=== PATIENT | female | born 1950 | race Caucasian/White ===

== ENCOUNTER 2018-05-28 14:34 | Outpatient (CLI) | payer MEDICARE, OTHER ==
--- NOTE | 2018-05-29 11:36 | Mammography Report ---
Procedure Date: 05/28/2018 Accession Number: [id number] / [id number] Procedure: CHARLES - Screening Mammo Dig Bilat CPT Code: FULL RESULT: EXAM: Screening Mammo Dig Bilat DATE: 05/28/2018 3:06 PM CLINICAL HISTORY: 70-year-old with history of benign left breast biopsy for screening TECHNIQUE: Bilateral CC and MLO views were obtained. COMPARISON: 12/14/2015, 09/20/2008, 11/17/2005 FINDINGS: The breasts demonstrate scattered fibroglandular densities bilaterally. Postbiopsy changes in the left breast are stable. No suspicious masses, clustered microcalcifications, or regions of architectural distortion are identified. IMPRESSION: Benign findings RECOMMENDATION: Routine annual screening unless otherwise clinically indicated. BIRADS CATEGORY 2: Benign findings STANDARD QUALIFYING STATEMENTS: 1. This examination was reviewed with the aid of Computer-Aided Detection (CAD). 2. A negative or benign imaging report should not delay biopsy if clinically suspicious findings are present. Consider surgical consultation if warrented. More than 5% of cancers are not identified by imaging. 3. Dense breasts may obscure an underlying neoplasm.
== END 2018-05-28 14:35 | disposition home or self-care (01) ==
LOC: DI 14:34
PROVIDERS: ATTEND Internal Medicine
DX: Z12.31 Encounter for screening mammogram for malignant neoplasm of breast (principal)
CPT/HCPCS: 77067

== ENCOUNTER 2021-10-21 12:57 | Outpatient (CLI) | payer MEDICARE, OTHER ==
--- NOTE | 2021-10-24 13:59 | Mammography Report ---
BILATERAL DIGITAL SCREENING MAMMOGRAM 3D/2D: 10/21/2021 CLINICAL: Routine screening. Comparison is made to exams dated: 05/28/2018 mammogram and 12/14/2015 mammogram - [facility]. There are scattered fibroglandular elements in both breasts. No significant masses, calcifications, or other findings are seen in either breast. There has been no significant interval change. IMPRESSION: NEGATIVE There is no mammographic evidence of malignancy. A 1 year screening mammogram is recommended. This exam was interpreted at Station ID: [id number]. NOTE: For mammograms, a report in lay terms will be sent to the patient. Approximately 15% of breast malignancies will not be visualized mammographically. In the management of a palpable breast mass, a negative mammogram must not discourage biopsy of a clinically suspicious lesion. Electronically Signed By: Ivania henry/penrad:10/21/2021 18:05:43 ACR BI-RADS Category 1: Negative 3341F PARENCHYMAL PATTERN: (A) - The breast(s) demonstrate(s) scattered fibroglandular densities. BI-RADS CATEGORY: (1) - 1 RECOMMENDATION: (ANNUAL) - Recommend routine annual screening mammography. 20221022 1 year screening LATERALITY: (B)
== END 2021-10-21 12:58 | disposition home or self-care (01) ==
LOC: DI 12:57
PROVIDERS: ATTEND Physician Assistant Medical
DX: Z12.31 Encounter for screening mammogram for malignant neoplasm of breast (principal)

== ENCOUNTER 2021-10-21 13:00 | Outpatient (CLI) | payer MEDICARE, OTHER ==
--- NOTE | 2021-10-21 16:16 | DEXA Report ---
PROCEDURE: Dexa Spine and/or Hip INDICATIONS: OSTEOPENIA TECHNIQUE: Dual energy x-ray absorptiometry (DXA) was performed on a [employer] medic System. Regions measur ed are the AP Spine, femoral neck, and if needed forearm. COMPARISON: None. FINDINGS: Lumbar Spine: Bone Mineral Density 0.945 g/cm/cm,T score -1.9, osteopenia Left Hip: Bone Mineral Density 0.850 g/cm/cm,T score -1.2, osteopenia Left Femoral Neck: Bone Mineral Density 0.715 g/cm/cm, T score -2.3, osteopenia (T score greater or equal to -1.0: NORMAL) (T score from -1.1 to -2.4: OSTEOPENIA) (T score less than or equal to -2.5 to: OSTEOPOROSIS) Impression: Osteopenia. Patients with diagnosis of osteoporosis or osteopenia should have regular bone mineral density assess ment. For those eligible for Medicare, routine testing is allowed once every 2 years. Testing frequ ency can be increased for patients who have rapidly progressing disease or for those who are receivin g medical therapy to restore bone mass. Reviewed by: Serina Martines MD, PhD on 10/21/2021 4:15 PM PST Approved by: Serina Martines MD, PhD on 10/21/2021 4:15 PM PST Station ID: [id number]
== END 2021-10-21 23:59 | disposition home or self-care (01) ==
LOC: DI 13:00
PROVIDERS: ATTEND Physician Assistant Medical
DX: M85.89 Other specified disorders of bone density and structure, multiple sites (principal)

== ENCOUNTER 2021-12-13 10:59 | Outpatient (CLI) | payer MEDICARE, OTHER ==
--- NOTE | 2021-12-13 11:48 | XRAY Report ---
PROCEDURE: Knee 3 View LT INDICATIONS: PAIN IN LEFT KNEE TECHNIQUE: 3 views of the left knee(s) were acquired. COMPARISON: None. FINDINGS: Bones: No fractures or dislocations. No suspicious bony lesions. Mild tricompartmental osteoarthrit is is seen more prominent in medial femoral tibial compartment. Soft tissues: No joint effusion. No suspicious soft tissue calcifications. IMPRESSION: No acute left knee fracture or dislocation. Mild tricompartmental osteoarthritis. No sig nificant joint effusion. Reviewed by: Jake Hurtado MD on 12/13/2021 11:47 AM PST Approved by: Jake Hurtado MD on 12/13/2021 11:47 AM PST Station ID: [id number]
== END 2021-12-13 11:00 | disposition home or self-care (01) ==
LOC: DI 10:59
PROVIDERS: ATTEND Physician Assistant
DX: M17.12 Unilateral primary osteoarthritis, left knee (principal)

== ENCOUNTER 2023-01-13 20:20 | Emergency (ER) | payer MEDICARE, OTHER ==
[2023-01-13] MEDS ORDERED: ONDANSETRON 4 MG/2 ML VIAL IVP STA (21:02)
[2023-01-13] MEDS ORDERED: HYDROmorphone 1 MG/ML CARPUJECT IVP STA (21:02)
[2023-01-13 21:19] LABS: BASOPHILS # (AUTO) 0.1 10^3/uL (0.0-0.1); BASOPHILS % (AUTO) 0.6 %; EOSINOPHILS # (AUTO) 0.2 10^3/uL (0.0-0.7); EOSINOPHILS % (AUTO) 2.3 %; HCT - HEMATOCRIT 42.6 % (37.0-47.0); HGB - HEMOGLOBIN 14.2 g/dL (12.0-16.0); LYMPHOCYTES # (AUTO) 2.4 10^3/uL (1.5-3.5); LYMPHOCYTES % (AUTO) 31.1 %; MEAN CORPUSCULAR HGB CONC 33.3 g/dL (32.0-36.0); MEAN PLATELET VOLUME 9.2 fL (7.9-10.8); MONOCYTES # (AUTO) 0.4 10^3/uL (0.0-1.0); MONOCYTES % (AUTO) 4.9 %; NEUTROPHILS # (AUTO) 4.8 10^3/uL (1.5-6.6); NEUTROPHILS % (AUTO) 60.8 %; PLT - PLATELET COUNT 275 10^3/uL (130-450); RED BLOOD COUNT 5.07 10^6/uL (4.20-5.40); RED CELL DISTRIBUTION WIDTH 12.7 % (12.0-15.0); WHITE BLOOD COUNT 7.8 x10^3/uL (4.8-10.8)
[2023-01-13 21:33] LABS: ALBUMIN 4.4 g/dL (3.2-5.5); ALBUMIN/GLOBULIN RATIO 1.6 (1.0-2.2); CALCIUM 10.1 mg/dL (8.5-10.3); CREATININE 0.7 mg/dL (0.4-1.0); POTASSIUM 3.4 mmol/L (3.5-5.0); TOTAL PROTEIN 7.1 g/dL (6.7-8.2)
[2023-01-13] MEDS ORDERED: FAMOTIDINE 20 MG TABLET PO STA (21:33)
--- NOTE | 2023-01-13 21:38 | ED Physician Documentation ---
History of Present Illness - Stated complaint Stated Complaint: PX ALL AROUND MID SECTION - Chief complaint Chief Complaint: Abd Pain - History obtained from History obtained from: Patient, Family (spouse) - Additonal information Additional information: 72-year-old woman with past medical history of high blood pressure presented with abdominal pain radiating to the back. Does have a history of gallstones but has not had cholecystectomy. States she ate dinner around 6pm then had sudden onset pain around 8pm that was band-like, radiating around to the back, initially 8/10, now 6/10. constant. denies fever, urinary sx. does have chronic diarrhea that is nonworsening. Review of Systems Constitutional: denies: Fever Cardiac: denies: Chest pain / pressure Respiratory: denies: Dyspnea GI: reports: Abdominal Pain, Nausea, Vomiting, Diarrhea (chronic) : denies: Dysuria PD PAST MEDICAL HISTORY - Past Medical History Cardiovascular: Hypertension Respiratory: None Endocrine/Autoimmune: Type 2 diabetes GI: GERD, Hiatal hernia, Ulcerative colitis : None HEENT: None Psych: None Musculoskeletal: None Derm: None - Past Surgical History General: Colonoscopy, EGD Ortho: Other /[employer]: Hysterectomy, Oophrectomy HEENT: Tonsil/Adenoidectomy - Present Medications Home Medications: Ambulatory Orders Medication Instructions Recorded Confirmed Losartan [Cozaar] 100 mg PO DAILY 03/02/16 03/03/16 hydroCHLOROthiazide 25 mg PO DAILY 03/02/16 03/03/16 [Hydrochlorothiazide] metFORMIN [Glucophage] 1,000 mg PO BIDWM 03/02/16 03/03/16 - Allergies Allergies/Adverse Reactions: Allergies Allergy/AdvReac Type Severity Reaction Status Date / Time shellfish derived Allergy Hives Verified 01/13/23 20:36 Tetracyclines AdvReac Nausea Verified 01/13/23 20:36 PD ED PE NORMAL - Vitals Vital signs reviewed: Yes - General General: Alert and oriented X 3, No acute distress, Well developed/nourished - HEENT HEENT: Atraumatic, PERRL, EOMI - Neck Neck: Supple, no meningeal sign - Derm Derm: Normal color, Warm and dry - Extremities Extremities: No deformity - Neuro Neuro: No motor deficit, No sensory deficit - Psych Psych: Normal mood, Normal affect Results - Vitals Vitals: Vital Signs - 24 hr 01/13/23 20:36 Temperature 36.5 C Heart Rate 84 Respiratory 16 Rate Blood Pressure 145/89 H O2 Saturation 97 Oxygen O2 Source Room air - EKG (time done) 2054 Rate: Rate (enter#) (95) Rhythm: NSR Intervals: RBBB QRS: LVH Ischemia: Normal ST segments - Labs Labs: Laboratory Tests 01/13/23 01/13/23 21:15 21:15 WBC 7.8 RBC 5.07 Hgb 14.2 Hct 42.6 MCV 84.0 MCH 28.0 MCHC 33.3 RDW 12.7 Plt Count 275 MPV 9.2 Neut # (Auto) 4.8 Lymph # (Auto) 2.4 [place] # (Auto) 0.4 Eos # (Auto) 0.2 Baso # (Auto) 0.1 Absolute Nucleated RBC 0.00 Nucleated RBC % 0.0 Sodium 137 Potassium 3.4 L Chloride 101 Carbon Dioxide 22 Anion Gap 14.0 H BUN 14 Creatinine 0.7 Estimated GFR (MDRD) 82 L Glucose 141 H Calcium 10.1 Total Bilirubin 1.0 AST 25 ALT 12 Alkaline Phosphatase 66 Total Protein 7.1 Albumin 4.4 Globulin 2.7 Albumin/Globulin Ratio 1.6 Lipase 33 PD Medical Decision Making - ED course Social Determinants of Health: Son in law just hospitalized with serious illness recently. ED course: 72-year-old woman with hx gallstones p/w upper abd pain radiating to back, now improved in the ED s/p pepcid. no ultrasound available to test for gallstone pathology but since she is now asymptomatic we can hold off. EKG was nsr at 95 with RBBB and LAFB , some signs of LVH. no prior ekg available. patient well appearing so doubt cardiac event. Labwork including cbc, abdominal panel ordered - noncontributory. discussed return precautions and plan is to f/u with PCP Dr. London next week. Departure - Departure Disposition: 01 Home, Self Care Clinical Impression: Abdominal pain Condition: Good Instructions: Abdominal Pain Follow-Up: Trace London MD [Primary Care Provider] - Comments: You are seen in the emergency department for abdominal pain. Your vital signs were overall normal except for blood pressure 145/89, which is slightly high. Your lab work showed no organ dysfunction. An EKG was performed which did not show heart attack, but did show some changes that may be related to high blood pressure. You should have your EKG repeated at your follow-up appointment with Dr. London. Please return to the emergency department for new or worsening symptoms or other concerns.
--- OUTSIDE RECORDS SUMMARY | 2023-01-13 21:39 | EXTERNAL MEDICAL SUMMARY RPT | Continuity of Care Document ---
:1950 Author Organization [facility] Address [address] [place] [address] Phone Care Team Providers Name Role Phone Unavailable Unavailable Unavailable Reuben Em Unavailable Unavailable Allergies and Intolerances date description facility type (no date) Mild [facility] (unknown) (no date) Sulfa (Sulfonamide Antibiotics) [facility] (unknown) Encounters No information. Functional Status No information. Immunizations No information. Medications date description facility 2022-10-23 00:00 Amlodipine [facility] 2022-10-23 00:00 Ibuprofen [facility] 2022-10-23 00:00 Losartan [facility] Problems date description facility 2022-10-23 07:53 Diarrhea, unspecified [facility] 2022-10-23 08:19 Diarrhea, unspecified [facility] 2022-10-23 08:39 Diarrhea, unspecified [facility] 2022-10-23 09:59 Diarrhea, unspecified [facility] 2022-10-23 10:08 Diarrhea, unspecified [facility] 2022-10-23 10:28 Diarrhea, unspecified [facility] Procedures date description facility 2022-10-23 00:00 Colonoscopy [facility] Results/Labs test date author facility value unit interpret ation Result panel 1 (unknown) (no date) (unknown) [place] (no value) (units (k now) [facility] unknown) Result panel 2 (unknown) (no date) (unknown) [place] (no value) (units ([facility]own[facility] unknown) Result panel 3 (unknown) (no date) (unknown) (unknown) (no value) (units 191 39-5 unknown) (unknown) (no date) (unknown) (unknown) (no value) (units 226 33-2 unknown) (unknown) (no date) (unknown) (unknown) (no value) (units 226 34-0 unknown) (unknown) (no date) (unknown) (unknown) (no value) (units 226 37-3 unknown) (unknown) (no date) (unknown) (unknown) (no value) (units 495 60-6 unknown) (unknown) (no date) (unknown) (unknown) (no value) (units 527 97-8 unknown) (unknown) (no date) (unknown) (unknown) (no value) (units (un known) unknown) (unknown) (no date) (unknown) (unknown) (no value) (units (un known) unknown) (unknown) (no date) (unknown) (unknown) (no value) (units (un known) unknown) (unknown) (no date) (unknown) (unknown) (no value) (units (un known) unknown) (unknown) (no date) (unknown) (unknown) (no value) (units (un known) unknown) (unknown) (no date) (unknown) (unknown) (no value) (units (un known) unknown) Result panel 4 (unknown) (no date) (unknown) (unknown) Negative (units (unkn own) unknown) (unknown) (no date) (unknown) (unknown) Negative (units (unkn own) unknown) Result panel 5 (unknown) (no (unknown) (unknown) (no value) (units (unk nown) date) unknown) (unknown) (no (unknown) (unknown) (past 8 hours): (units (unknown) date) unknown) (unknown) (no (unknown) (unknown) 08:01 (units (unkno wn) date) unknown) (unknown) (no (unknown) (unknown) 08:21 (units (unkno wn) date) unknown) (unknown) (no (unknown) (unknown) 10/23/22 0902 (units ( unknown) date) unknown) (unknown) (no (unknown) (unknown) 10/23/22 0903 (units ( unknown) date) unknown) (unknown) (no (unknown) (unknown) 10/23/22 (units (unkno wn) date) unknown) (unknown) (no (unknown) (unknown) 72-year-old (units (un known) date) female with unknown) chronic diarrhea. She has a remote history of some form (unknown) (no (unknown) (unknown) ASA Class (for (units (unknown) date) procedural unknown) sedation): II (unknown) (no (unknown) (unknown) Age/Sex: 72 / F (units (unknown) date) unknown) (unknown) (no (unknown) (unknown) Allergies (units (unkn own) date) unknown) (unknown) (no (unknown) (unknown) Allergy/AdvReac (units (unknown) date) Type Severity unknown) Reaction Status Date / Time (unknown) (no (unknown) (unknown) Antibiotics) (units (u nknown) date) unknown) (unknown) (no (unknown) (unknown) Appearance: (units (un known) date) grossly normal unknown) (unknown) (no (unknown) (unknown) Assessment + (units (u nknown) date) Plan narrative: unknown) (unknown) (no (unknown) (unknown) Assessment + (units (u nknown) date) Plan unknown) (unknown) (no (unknown) (unknown) Blood Pressure (units (unknown) date) 133/86 unknown) (unknown) (no (unknown) (unknown) COVID-19 (units (unkno wn) date) status: Negative unknown) (unknown) (no (unknown) (unknown) COVID-19 (units (unkno wn) date) unknown) (unknown) (no (unknown) (unknown) Cardio (units (unkno wn) date) unknown) (unknown) (no (unknown) (unknown) Changes to H+P: (units (unknown) date) No unknown) (unknown) (no (unknown) (unknown) Chest (units (unkno wn) date) unknown) (unknown) (no (unknown) (unknown) Chest: normal (units ( unknown) date) inspection of unknown) the chest (unknown) (no (unknown) (unknown) Chief (units (unkno wn) date) complaint: unknown) Colonoscopy (unknown) (no (unknown) (unknown) Const (units (unkno wn) date) unknown) (unknown) (no (unknown) (unknown) Criteria for (units (u nknown) date) continued unknown) procedure: Possibility delay results in more complex (unknown) (no (unknown) (unknown) Critical Care (units ( unknown) date) time: unknown) (unknown) (no (unknown) (unknown) : 1950 (units (unknown) date) Acct:[id number] unknown) (unknown) (no (unknown) (unknown) Date Patient (units (u nknown) date) Seen: 10/23/22 unknown) (unknown) (no (unknown) (unknown) Date of (units (unkno wn) date) Service: unknown) 10/23/22 (unknown) (no (unknown) (unknown) Effort + (units (unkno wn) date) Inspection: unknown) normal respiratory effort (unknown) (no (unknown) (unknown) Exam (units (unkno wn) date) unknown) (unknown) (no (unknown) (unknown) Extrem (units (unkno wn) date) unknown) (unknown) (no (unknown) (unknown) Eyes (units (unkno wn) date) unknown) (unknown) (no (unknown) (unknown) Family + Social (units (unknown) date) History unknown) (unknown) (no (unknown) (unknown) GI (units (unkno wn) date) unknown) (unknown) (no (unknown) (unknown) General: (units (unkno wn) date) appearance unknown) normal, both eyes and all related structures (unknown) (no (unknown) (unknown) General: (units (unkno wn) date) cooperative unknown) (unknown) (no (unknown) (unknown) General: no (units (un known) date) rashes or unknown) lesions noted (unknown) (no (unknown) (unknown) General: normal (units (unknown) date) to inspection unknown) and no pedal edema (unknown) (no (unknown) (unknown) General: (units (unkno wn) date) patient alert unknown) and patient awake (unknown) (no (unknown) (unknown) HENMT (units (unkno wn) date) unknown) (unknown) (no (unknown) (unknown) Head: normal to (units (unknown) date) inspection unknown) (unknown) (no (unknown) (unknown) History + (units (unkn own) date) Physical Report unknown) (unknown) (no (unknown) (unknown) History + (units (unkn own) date) Physical unknown) reviewed/Exam performed by Physician: Yes (unknown) (no (unknown) (unknown) History of (units (unk nown) date) Present Illness unknown) (unknown) (no (unknown) (unknown) Home (units (unkno wn) date) Medications and unknown) Allergies (unknown) (no (unknown) (unknown) Home (units (unkno wn) date) Medications unknown) (unknown) (no (unknown) (unknown) I reviewed the (units (unknown) date) recent office unknown) note by Dr. Jones. No changes. (unknown) (no (unknown) (unknown) I spent a total (units (unknown) date) of [] minutes of unknown) critical care time on this patient's care (unknown) (no (unknown) (unknown) Inspection: (units (un known) date) normal to unknown) inspection (unknown) (no (unknown) (unknown) Interval Note (units ( unknown) date) unknown) (unknown) (no (unknown) (unknown) [facility] (units (unknown) date) [address] [place] [address] unknown) [place] [address] (unknown) (no (unknown) (unknown) Laboratory (units (unk nown) date) Results - last unknown) 24 hr (unknown) (no (unknown) (unknown) Labs (units (unkno wn) date) unknown) (unknown) (no (unknown) (unknown) Labs: (units (unkno wn) date) unknown) (unknown) (no (unknown) (unknown) MR#: [id number] (units (unknown) date) unknown) (unknown) (no (unknown) (unknown) Medication (units (unk nown) date) Instructions unknown) Recorded Confirmed Type (unknown) (no (unknown) (unknown) Meds (units (unkno wn) date) unknown) (unknown) (no (unknown) (unknown) Narrative: (units (unk nown) date) unknown) (unknown) (no (unknown) (unknown) Neck (units (unkno wn) date) unknown) (unknown) (no (unknown) (unknown) Neck: normal (units (u nknown) date) visual unknown) inspection (unknown) (no (unknown) (unknown) Neuro (units (unkno wn) date) unknown) (unknown) (no (unknown) (unknown) Objective (units (unkn own) date) unknown) (unknown) (no (unknown) (unknown) Oxygen Delivery (units (unknown) date) Method Room Air unknown) (unknown) (no (unknown) (unknown) Patient History (units (unknown) date) unknown) (unknown) (no (unknown) (unknown) Patient: (units (unkno wn) date) Holderman unknown) Loni Guzman (unknown) (no (unknown) (unknown) Pre-operative (units ( unknown) date) Note unknown) (unknown) (no (unknown) (unknown) Provider: (units (unkn own) date) Reuben Em unknown) (unknown) (no (unknown) (unknown) Psych (units (unkno wn) date) unknown) (unknown) (no (unknown) (unknown) Pulse Oximetry (units (unknown) date) 98 unknown) (unknown) (no (unknown) (unknown) Pulse Rate 67 (units ( unknown) date) unknown) (unknown) (no (unknown) (unknown) ROS: Yes All (units (u nknown) date) systems reviewed unknown) with the patient and are negative except as (unknown) (no (unknown) (unknown) Rate: regular (units ( unknown) date) rate unknown) (unknown) (no (unknown) (unknown) Resp (units (unkno wn) date) unknown) (unknown) (no (unknown) (unknown) Respiratory (units (un known) date) Rate 16 unknown) (unknown) (no (unknown) (unknown) Result (units (unkno wn) date) date/Date tested unknown) (Pos, Neg/Pending): 10/23/22 (unknown) (no (unknown) (unknown) Review of (units (unkn own) date) Systems unknown) (unknown) (no (unknown) (unknown) SARS-CoV-2 (units (unk nown) date) (PCR) Negative unknown) (unknown) (no (unknown) (unknown) Signed (units (unkno wn) date) By:<Electronical unknown) ly signed by Reuben Em MD> (unknown) (no (unknown) (unknown) Skin (units (unkno wn) date) unknown) (unknown) (no (unknown) (unknown) Smoking Status (units (unknown) date) Former smoker unknown) (unknown) (no (unknown) (unknown) Social History: (units (unknown) date) unknown) (unknown) (no (unknown) (unknown) Substance Use (units ( unknown) date) Type marijuana unknown) (unknown) (no (unknown) (unknown) Sulfa (units (unkno wn) date) (Sulfonamide unknown) AdvReac Mild Vomiting Verified 10/23/22 08:14 (unknown) (no (unknown) (unknown) Temperature (units (un known) date) 97.3 F L unknown) (unknown) (no (unknown) (unknown) Time Patient (units (u nknown) date) Seen: 09:01 unknown) (unknown) (no (unknown) (unknown) Time Spent With (units (unknown) date) Patient unknown) (unknown) (no (unknown) (unknown) Tobacco + (units (unkn own) date) Substance use: unknown) (unknown) (no (unknown) (unknown) Vital Signs (units (un known) date) unknown) (unknown) (no (unknown) (unknown) alcohol intake (units (unknown) date) current unknown) (unknown) (no (unknown) (unknown) alcohol intake (units (unknown) date) frequency unknown) holiday/special occasion (unknown) (no (unknown) (unknown) amlodipine 2.5 (units (unknown) date) mg tablet 2.5 mg unknown) PO DAILY 10/23/22 10/23/22 History (unknown) (no (unknown) (unknown) colonoscopy is (units (unknown) date) pursued today. unknown) (unknown) (no (unknown) (unknown) future surgery (units (unknown) date) or treatment unknown) (unknown) (no (unknown) (unknown) household (units (unkn own) date) members unknown) significant other (unknown) (no (unknown) (unknown) ibuprofen 200 (units ( unknown) date) mg tablet 200 mg unknown) PO DAILY 10/23/22 10/23/22 History (unknown) (no (unknown) (unknown) losartan 25 mg (units (unknown) date) tablet 25 mg PO unknown) DAILY 10/23/22 10/23/22 History (unknown) (no (unknown) (unknown) of colitis many (units (unknown) date) years ago. unknown) Sounds like it may have been ischemic. Updated (unknown) (no (unknown) (unknown) otherwise (units (unkn own) date) documented unknown) (unknown) (no (unknown) (unknown) today; this (units (un known) date) time is unknown) exclusive of procedural time. Result panel 6 (unknown) (no (unknown) (unknown) (no value) (units (unk nown) date) unknown) (unknown) (no (unknown) (unknown) (units (unknown) date) unknown) (unknown) (no (unknown) (unknown) Performed at: (units (unknown) date) 01 unknown) (unknown) (no (unknown) (unknown) . 01 (units (unkno wn) date) unknown) (unknown) (no (unknown) (unknown) . (units (unkno wn) date) unknown) (unknown) (no (unknown) (unknown) /JANET 10/24/2022 (units (unknown) date) 0101 Local unknown) (unknown) (no (unknown) (unknown) 0.1 x 0.1 x 0.1 (units (unknown) date) cm to 0.2 x 0.2 x unknown) 0.2 cm submitted entirely in 1 (unknown) (no (unknown) (unknown) 0.3 x 0.2 x 0.2 (units (unknown) date) cm submitted unknown) entirely in 1 cassette(s) (unknown) (no (unknown) (unknown) [address] [facility] (units (unknown) date) unknown) (unknown) (no (unknown) (unknown) [address] [place] [address] (units (unknown) date) [address], unknown) [place], [place] [id number] (unknown) (no (unknown) (unknown) [id number] (units (unknown) date) unknown) (unknown) (no (unknown) (unknown) A. Random Colon, (units (unknown) date) Biopsies: unknown) (unknown) (no (unknown) (unknown) [place], [place] (units ( unknown) date) [id number] unknown) (unknown) (no (unknown) (unknown) B. Transverse (units ( unknown) date) Colon Polyp, unknown) Biopsy: (unknown) (no (unknown) (unknown) CPT . (units (unkno wn) date) unknown) (unknown) (no (unknown) (unknown) Collection Date: (units (unknown) date) 10/23/22 unknown) (unknown) (no (unknown) (unknown) Colonic mucosa (units (unknown) date) with focal unknown) mucosal hyperplasia. (unknown) (no (unknown) (unknown) Colonic mucosa (units (unknown) date) with no unknown) diagnostic abnormality. (unknown) (no (unknown) (unknown) DD/ (units (unknown) date) 0000 unknown) (unknown) (no (unknown) (unknown) Date of : (units (unknown) date) 1950 Admit unknown) Date: 10/23/22 (unknown) (no (unknown) (unknown) Diagnosis: (units (unk nown) date) unknown) (unknown) (no (unknown) (unknown) Dictated By: (units (u nknown) date) Karlos Rowell unknown) (unknown) (no (unknown) (unknown) Electronically (units (unknown) date) signed: . unknown) (unknown) (no (unknown) (unknown) Gross (units (unkno wn) date) description: . unknown) (unknown) (no (unknown) (unknown) [facility] (units (unknown) date) unknown) (unknown) (no (unknown) (unknown) [facility] Accession (units ( unknown) date) Number: unknown) [id number] (unknown) (no (unknown) (unknown) [facility] (units (unknown) date) [place] [facility] unknown) (unknown) (no (unknown) (unknown) MD Liu (units (unkn own) date) Yg WORK[facility] Phone: unknown) [phone] (unknown) (no (unknown) (unknown) (units (unknown) date) Dictating Dr: unknown) Karlso Rowell MD (unknown) (no (unknown) (unknown) MRV 10/25/2022 (units (unknown) date) 1538 Local unknown) (unknown) (no (unknown) (unknown) Material (units (unkno wn) date) submitted: . unknown) (unknown) (no (unknown) (unknown) Karlos Ericka (units (unkn own) date) MD Lelia, PhD, unknown) Pathologist (unknown) (no (unknown) (unknown) NPI- [id number] (units (unknown) date) unknown) (unknown) (no (unknown) (unknown) Negative for (units (u nknown) date) active, chronic, unknown) and microscopic colitis. (unknown) (no (unknown) (unknown) Negative for (units (u nknown) date) dysplasia and unknown) malignancy. (unknown) (no (unknown) (unknown) Negative for (units (u nknown) date) dysplasia or unknown) malignancy. (unknown) (no (unknown) (unknown) Ordering (units (unkno wn) date) Physician: unknown) Reuben Em MD (unknown) (no (unknown) (unknown) PART A: colon - (units (unknown) date) RANDOM COLON unknown) BIOPSIES (unknown) (no (unknown) (unknown) PART B: colon - (units (unknown) date) TRANSVERSE COLON unknown) POLYP (unknown) (no (unknown) (unknown) Part A: RANDOM (units (unknown) date) COLON BIOPSIES: unknown) (unknown) (no (unknown) (unknown) Part B: (units (unkno wn) date) TRANSVERSE COLON unknown) POLYP: (unknown) (no (unknown) (unknown) Pathologist (units (un known) date) provided ICD-10: unknown) (unknown) (no (unknown) (unknown) Pathology (units (unkn own) date) Diagnostic Report unknown) (unknown) (no (unknown) (unknown) Patient name: (units ( unknown) date) Holderman unknown) Loni Guzman (unknown) (no (unknown) (unknown) R19.7, K63.5 (units (u nknown) date) unknown) (unknown) (no (unknown) (unknown) Received in (units (un known) date) formalin are 3 unknown) fragment(s) of taylor, soft tissue measuring (unknown) (no (unknown) (unknown) Received in (units (un known) date) formalin is 1 unknown) fragment(s) of taylor, soft tissue measuring (unknown) (no (unknown) (unknown) Signed By: (units (unk nown) date) 10/25/221906 unknown) (unknown) (no (unknown) (unknown) Signed (units (unkno wn) date) unknown) (unknown) (no (unknown) (unknown) Specimen (units (o wn) date) Comment: A unknown) courtesy copy of this report has been sent to [phone] (unknown) (no (unknown) (unknown) TD/TT: 10/25/22 (units (unknown) date) 1906 unknown) (unknown) (no (unknown) (unknown) cassette(s) (units (un known) date) unknown) Result panel 7 (unknown) (no (unknown) (unknown) (no value) (units (unk n) date) unknown) (unknown) (no (unknown) (unknown) 1. Await (units (o wn) date) histopathology 2. unknown) Fiber based bowel regimen is recommended for now. (unknown) (no (unknown) (unknown) 1. Grade 3 (units (k n) date) internal unknown) hemorrhoids (unknown) (no (unknown) (unknown) 10/23/22 0941 (units ( unknown) date) unknown) (unknown) (no (unknown) (unknown) 2. (units (o wn) date) Diverticulosis unknown) (unknown) (no (unknown) (unknown) 3. Twisty colon (units (unknown) date) unknown) (unknown) (no (unknown) (unknown) 4. Transverse (units ( unknown) date) colon polyp unknown) (unknown) (no (unknown) (unknown) 5 mm polyp in (units ( unknown) date) the transverse unknown) removed with cold forceps. The ileocecal valve (unknown) (no (unknown) (unknown) After the risks (units (unknown) date) and benefits were unknown) explained, written and verbal informed consent (unknown) (no (unknown) (unknown) Age/Sex: 72 / F (units (unknown) date) unknown) (unknown) (no (unknown) (unknown) Bowel prep (units (unk nown) date) adequate unknown) (unknown) (no (unknown) (unknown) Colonoscopy Note (units (unknown) date) unknown) (unknown) (no (unknown) (unknown) Colonoscopy with (units (unknown) date) cold forceps unknown) polypectomy and biopsies (unknown) (no (unknown) (unknown) Complications: (units (unknown) date) none unknown) (unknown) (no (unknown) (unknown) Comprehensive (units ( unknown) date) imaging was unknown) accomplished throughout the rectum including the (unknown) (no (unknown) (unknown) : 1950 (units (unknown) date) Acct:[id number] unknown) (unknown) (no (unknown) (unknown) Date of Service: (units (unknown) date) 10/23/22 unknown) (unknown) (no (unknown) (unknown) Date of (units (unkno wn) date) procedure: unknown) 10/23/22 (unknown) (no (unknown) (unknown) Diarrhea (units (unkno wn) date) unknown) (unknown) (no (unknown) (unknown) Disposition: (units (u nknown) date) PACU unknown) (unknown) (no (unknown) (unknown) Diverticulosis (units (unknown) date) was encountered unknown) in the sigmoid region. There was a diminutive 4 (unknown) (no (unknown) (unknown) Endoscopic (units (unk nown) date) diagnosis unknown) (unknown) (no (unknown) (unknown) Impression: (units (un known) date) unknown) (unknown) (no (unknown) (unknown) Indications: (units (u nknown) date) unknown) (unknown) (no (unknown) (unknown) [facility] (units (unknown) date) [address] unknown) [place] [address] (unknown) (no (unknown) (unknown) MR#: [id number] (units (unknown) date) unknown) (unknown) (no (unknown) (unknown) Operative (units (unkn own) date) Date/Time/Diagnos unknown) es (unknown) (no (unknown) (unknown) Patient: (units (unkno wn) date) Holderman unknown) Loni Guzman (unknown) (no (unknown) (unknown) Pediatric (units (unkn own) date) colonoscope unknown) (unknown) (no (unknown) (unknown) Plan for (units (unkno wn) date) aftercare: unknown) (unknown) (no (unknown) (unknown) Post-op (units (unkno wn) date) diagnosis: same unknown) (unknown) (no (unknown) (unknown) Post-procedure (units (unknown) date) unknown) (unknown) (no (unknown) (unknown) Pre-op (units (unkno wn) date) diagnosis: unknown) Chronic diarrhea (unknown) (no (unknown) (unknown) Procedure + (units (un known) date) Clinicians unknown) (unknown) (no (unknown) (unknown) Procedure Notes (units (unknown) date) unknown) (unknown) (no (unknown) (unknown) Procedure in (units (u nknown) date) detail: unknown) (unknown) (no (unknown) (unknown) Provider: (units ( own) date) Reuben Em MD unknown) (unknown) (no (unknown) (unknown) SCOAP/Timeout: (units (unknown) date) Done unknown) (unknown) (no (unknown) (unknown) Same procedure (units (unknown) date) as scheduled: Yes unknown) (unknown) (no (unknown) (unknown) Scope withdrawal (units (unknown) date) time: 13 minutes unknown) (unknown) (no (unknown) (unknown) Sedation (units (unkno wn) date) minutes: 28 unknown) (unknown) (no (unknown) (unknown) Signed (units (unkno wn) date) By:<Electronicall unknown) y signed by Reuben Em MD> (unknown) (no (unknown) (unknown) Study performed: (units (unknown) date) unknown) (unknown) (no (unknown) (unknown) Surgeon: Reuben (units (unknown) date) Manav unknown) (unknown) (no (unknown) (unknown) The patient had (units (unknown) date) evidence of a unknown) prolapsed mildly inflamed internal hemorrhoid. (unknown) (no (unknown) (unknown) The terminal (units (u nknown) date) ileum was unknown) interrogated and appeared normal. I did not identify any (unknown) (no (unknown) (unknown) This was (units (unkno wn) date) palpable on BARRERA. unknown) This was rated at grade 3 as it was fairly easily (unknown) (no (unknown) (unknown) Time of (units (unkno wn) date) procedure: 09:37 unknown) (unknown) (no (unknown) (unknown) as identified by (units (unknown) date) the appendiceal unknown) orifice and ileocecal valve. The scope was (unknown) (no (unknown) (unknown) demonstrated (units (u nknown) date) evaginated ileal unknown) mucosa but was otherwise within normal limits. (unknown) (no (unknown) (unknown) dentate line. (units ( unknown) date) The colon was unknown) decompressed, the scope was then removed from the (unknown) (no (unknown) (unknown) evidence of (units (un known) date) macroscopic unknown) colitis. Random colon biopsies were taken for exclusion (unknown) (no (unknown) (unknown) introduced into (units (unknown) date) the patient and unknown) advanced under direct visualization to the cecum (unknown) (no (unknown) (unknown) of microscopic (units (unknown) date) colitis. unknown) (unknown) (no (unknown) (unknown) patient who (units (un known) date) tolerated the unknown) procedure well. (unknown) (no (unknown) (unknown) reduced with the (units (unknown) date) digital exam. The unknown) patient had a very tortuous colon. (unknown) (no (unknown) (unknown) sedation (units (unkno wn) date) details. Digital unknown) rectal examination was accomplished. The scope was (unknown) (no (unknown) (unknown) slowly withdrawn (units (unknown) date) to carefully unknown) examine the mucosa for any defects or lesions. (unknown) (no (unknown) (unknown) the left lateral (units (unknown) date) decubitus unknown) position. Please see nurse drafting technician notes for (unknown) (no (unknown) (unknown) was obtained. (units ( unknown) date) The patient was unknown) brought into the procedure room and placed into Social History date description facility 2022-10-23 00:00 Ex-smoker ([facility] Vital Signs date measurement value units 2022-10-23 00:00 BMI 28.1 kg/m2 2022-10-23 00:00 BP_diastolic 81 mmHg 2022-10-23 00:00 BP_systolic 150 mmHg 2022-10-23 00:00 heart_rate 59 /min 2022-10-23 00:00 height_metric 170.18 cm 2022-10-23 00:00 height_standard 67 in 2022-10-23 00:00 o2_saturation 99 % 2022-10-23 00:00 respiration_rate 18 /min 2022-10-23 00:00 temperature_metric 36.78 C 2022-10-23 00:00 temperature_standard 98.2 F 2022-10-23 00:00 weight_metric 81.64 kg 2022-10-23 00:00 weight_standard 179.99 lb
[2023-01-13 22:10] VITALS: BP 159/85
== END 2023-01-13 22:10 | disposition home or self-care (01) ==
LOC: ED 20:20
DX: R10.9 Unspecified abdominal pain (principal); I10 Essential (primary) hypertension; E11.9 Type 2 diabetes mellitus without complications; Z79.84 Long term (current) use of oral hypoglycemic drugs; Z79.899 Other long term (current) drug therapy
CPT/HCPCS: 36415; 80053; 83690; 85025; 93005; 99284; A9270

== ENCOUNTER 2023-02-09 07:04 | Outpatient (CLI) | payer MEDICARE, OTHER ==
--- NOTE | 2023-02-09 09:13 | Ultrasound Report ---
PROCEDURE: Abdomen Limited INDICATIONS: ABN PAIN TECHNIQUE: Real-time scanning was performed of the abdominal and retroperitoneal organs, with image documentatio n. COMPARISON: None. FINDINGS: Liver: Increased liver echogenicity, likely mild hepatic steatosis. Gallbladder: Cholelithiasis without evidence of acute cholecystitis. Biliary ducts: Intrahepatic bile ducts are non-dilated. Extrahepatic bile duct caliber measures 4 m m. Normal is 6-7 mm or less in diameter, or 10 mm or less post-cholecystectomy. Pancreas: Visualized portions of the pancreas are sonographically normal. Right kidney: Normal in size and echotexture. Right kidney measures 11.4 cm long. No hydronephrosis or nephrolithiasis. No solid masses. No complex renal cystic lesions which require follow-up. Aorta: Visualized aorta is normal in caliber at less than 3 cm. IVC: Intrahepatic inferior vena cava is patent. Miscellaneous: No free abdominal fluid. IMPRESSION: Cholelithiasis without evidence of acute cholecystitis. Reviewed by: Artur Kee on 02/09/2023 9:12 AM PDT Approved by: Artur Kee on 02/09/2023 9:12 AM PDT Station ID: [id number]
== END 2023-02-09 07:05 | disposition home or self-care (01) ==
LOC: DI 07:04
PROVIDERS: ATTEND Student in an Organized Health Care Education/Training Program
DX: K80.20 Calculus of gallbladder without cholecystitis without obstruction (principal); R10.9 Unspecified abdominal pain

== ENCOUNTER 2023-02-26 08:20 | Day surgery (SDC) | payer MEDICARE, OTHER ==
[2023-02-26] MEDS ORDERED: ACETAMINOPHEN 500 MG TABLET PO ONE (08:26)
[2023-02-26] MEDS ORDERED: CEFAZOLIN 2G/50ML 0.9% NS 2 GM/50 ML BAG IV ONE (08:27)
[2023-02-26] MEDS ORDERED: metroNIDAZOLE 500 MG/100 ML 500 MG/100 ML BAG ONE (08:27)
[2023-02-26] MEDS ORDERED: LACTATED RINGERS 1,000 ML IV ONE ×2 (08:40→10:41)
[2023-02-26] MEDS ORDERED: METOCLOPRAMIDE 10 MG/2 ML VIAL IVP PRN (09:01)
[2023-02-26] MEDS ORDERED: fentaNYL 100 MCG/2 ML VIAL IVP PRN (09:01)
[2023-02-26] MEDS ORDERED: ATROPINE ABBOJECT 1 MG/10 ML SYRINGE IVP PRN (09:01)
[2023-02-26] MEDS ORDERED: NALOXONE 0.4 MG/ML VIAL IVP PRN (09:01)
[2023-02-26] MEDS ORDERED: ONDANSETRON 4 MG/2 ML VIAL IVP PRN ×2 (09:01→10:38)
[2023-02-26] MEDS ORDERED: ePHEDrine 50 MG/ML VIAL IVP PRN (09:01)
[2023-02-26] MEDS ORDERED: HYDROmorphone 0.5 MG/0.5 ML SYRINGE IVP PRN ×2 (09:01→10:38)
[2023-02-26] MEDS ORDERED: MORPHINE 2 MG/ML CARPUJECT IVP PRN (09:01)
--- NOTE | 2023-02-26 09:01 | ANESTHESIA ---
Pre-Anesthesia VS, & Labs - Diagnosis bleeding prolapsed hemorrhoid - Procedure EUA hemorrhoidectomy Vital Signs: Temp Pulse Resp BP Pulse Ox O2 Flow Rate 36.3 C L 65 16 141/88 H 96 0 02/26/23 08:45 02/26/23 08:45 02/26/23 08:45 02/26/23 08:45 02/26/23 08:45 02/26/23 08:45 Height: 5 ft 7 in Weight (kg): 85 kg Body Mass Index: 29.3 BMI Classification: Overweight - NPO >8 hours - Is Patient ?: No Home Medications and Allergies Home Medications: Ambulatory Orders Amlodipine Besylate [Norvasc] 10 mg PO DAILY 02/19/23 Losartan [Cozaar] 25 mg PO DAILY 03/02/16 hydroCHLOROthiazide [Hydrochlorothiazide] 25 mg PO DAILY PRN 03/02/16 Amlodipine Besylate [Norvasc] 10 mg PO DAILY 02/19/23 Allergies/Adverse Reactions: Allergies Allergy/AdvReac Type Severity Reaction Status Date / Time shellfish derived Allergy Hives Verified 01/13/23 20:36 Tetracyclines AdvReac Nausea Verified 01/13/23 20:36 Anes History & Medical History - Anesthetic History Anesthesia Complications: reports: No previous complications Family history of Anesthesia Complications: Denies Family history of Malignant Hyperthermia: Denies - Medical History Cardiovascular: reports: Hypertension, High cholesterol, Other (R BBB) Pulmonary: reports: None Gastrointestinal: reports: GERD, Hiatal hernia, Cholelithiasis, Ulcerative colitis, Other Urinary: reports: Nocturia Musculoskeletal: reports: None Endocrine/Autoimmune: reports: None Skin: reports: Rosacea - Surgical History General: reports: Colonoscopy, EGD Eyes Ears Nose Throat (EENT): reports: Tonsil/Adenoidectomy Gynecologic: reports: Hysterectomy, Oophrectomy Orthopedic: reports: Other Exam General: Alert Dental: WNL Mouth Openin Fingerbreadth Neck Mobility: Normal Mallampati classification: II Thyromental Distance: 4-6 cm Respiratory: Lungs clear Cardiovascular: Regular rate Plan Anesthesia Type: General Consent for Procedure(s) Verified and Reviewed: Yes Code Status: Attempt Resuscitation ASA classification: 2-Mild systemic disease Is this case an emergency?: No
[2023-02-26] MEDS ORDERED: LIDOCAINE JELLY 2% 6 ML JEL.PF.APP ONE (09:02)
[2023-02-26] MEDS ORDERED: LIDOCAINE MPF 2%-EPI 1:200000 20 ML VIAL ONE (09:02)
[2023-02-26] MEDS ORDERED: BUPIVACAINE 0.25% PF 30 ML VIAL ONE (09:03)
[2023-02-26] MEDS ORDERED: LIDOCAINE OINTMENT 5% 35.44 GM TUBE ONE (09:05)
[2023-02-26] MEDS ORDERED: ONDANSETRON 4 MG/2 ML VIAL ONE (09:39)
[2023-02-26] MEDS ORDERED: PROPOFOL 200 MG/20 ML VIAL IVP ONE (09:39)
[2023-02-26] MEDS ORDERED: MIDAZOLAM 2 MG/2 ML VIAL ONE (09:39)
[2023-02-26] MEDS ORDERED: fentaNYL 100 MCG/2 ML VIAL ONE (09:39)
[2023-02-26] MEDS ORDERED: LIDOCAINE-PF 2% 10 ML AMP SUBQ ONE (09:39)
[2023-02-26] MEDS ORDERED: LACTATED RINGERS 1,000 ML IV SCH (10:00)
[2023-02-26] MEDS ORDERED: BUPIVACAINE 0.5% PF 30 ML VIAL INFIL ONE ×2 (10:26)
[2023-02-26] MEDS ORDERED: LIDOCAINE MPF 2%-EPI 1:200000 10 ML VIAL SUBQ ONE ×2 (10:26)
[2023-02-26] MEDS ORDERED: oxyCODONE 5 MG TABLET PO PRN (10:38)
--- NOTE | 2023-02-26 10:41 | OPERATIVE REPORT ---
Operative Report - General Procedure Date: 02/26/23 Planned Procedure: exam under anesthesia, complex hemorrhoidectomy Pre-Op Diagnosis: prolapsed hemorrhoid Procedure Performed: exam under anesthesia, complex hemorrhoidectomy Post Op Diagnosis: grade 4 left lateral internal hemorrhoid - Procedure Note Primary Surgeon: Dr. Jenny Cormier Anesthesia Technique: General LMA, Local, Regional block Pathology: hemorrhoid Estimated Blood Loss (mL): 2 Indications: The patient has a prolapsed hemorrhoid that bleeds every time she has a bowel movement. It is uncomfortable for her and has not improved with conservative management. She was seen and evaluated in clinic. We discussed the risks, benefits, and alternatives of exam under anesthesia with hemorrhoidectomy. The patient's recently had a colonoscopy and did not have any concerning findings. The patient voiced understanding, her questions were answered, and she wished to proceed. A consent was signed by the patient prior to surgery. Findings: 1.Grade 4 left lateral internal hemorrhoid Complications: None - Other Other Information/Narrative: The patient was brought to the operative room and placed in the supine position. Preop antibiotics and ERAS medications were given. Anesthesia was induced to the appropriate level of consciousness. The patient was then placed in lithotomy position and prepped and draped in the usual sterile fashion. A preop surgical timeout was performed. Next, a rashel field block and bilateral pudendal nerve block was performed using 0.25% Marcaine with epinephrine mixed 50-50 with 2% lidocaine plain. Then, a well-lubricated, small Hill-Dent retractor was placed. Then a well- lubricated medium sized Hill-Dent retractor was placed. The patient was noted to have a large, grade 4 internal hemorrhoid in the left lateral position with extensive granulation of the prolapsed portion of the hemorrhoid. This was excised using a LigaSure device. There was no bleeding. Additional local was injected into the site where the hemorrhoid had previously been. Lidocaine ointment was placed with in the anal opening and a sterile golf ball dressing was placed. The patient tolerated the procedure well. There were no complications. She was transferred to the recovery room in stable condition.
[2023-02-26 11:55] VITALS: BP 144/82
--- NOTE | 2023-02-26 17:19 | ANESTHESIA POST OP EVALUATION ---
Anesthesia Post Eval - Post Anesthesia Eval Vitals: Last Vital Signs Temp 36.1 C L 02/26/23 11:54 Pulse 65 02/26/23 11:54 Resp 16 02/26/23 11:54 BP 144/82 H 02/26/23 11:54 Pulse Ox 95 02/26/23 11:54 O2 Flow Rate 0 02/26/23 08:45 CV Function Including HR & BP: Stable Pain Control: Satisfactory Nausea & Vomiting: Negative Mental Status: Baseline Respiratory Status: Airway Patent Hydration Status: Satisfactory Anesthesia Complications: None
== END 2023-02-26 08:21 | disposition home or self-care (01) ==
LOC: SDS 08:20
PROVIDERS: ATTEND Surgery
PROC: 06BY3ZC Excision of Hemorrhoidal Plexus, Percutaneous Approach (ICD-10-PCS; principal; 2023-02-26 09:30)
DX: K64.3 Fourth degree hemorrhoids (principal); I10 Essential (primary) hypertension
CPT/HCPCS: 46255; A9270; J0690; J7120

== ENCOUNTER 2023-09-28 09:13 | Outpatient (CLI) | payer MEDICARE, OTHER ==
--- NOTE | 2023-09-30 14:37 | CT Report ---
PROCEDURE: ABDOMEN/PELVIS WO INDICATIONS: KIDNEY PAIN TECHNIQUE: A CT scan of the abdomen and pelvis was performed without the use of intravenous contrast. Images we re recorded and evaluated at appropriate window settings. Reformats: coronal and sagittal. For radiat ion dose reduction, the following was used: automated exposure control, adjustment of mA and/or kV ac cording to patient size. COMPARISON: Ultrasound abdomen limited, 02/09/2023. FINDINGS: Image quality: Excellent. Lung bases and heart: There is a 5 mm nodule in the left lower lobe (series 3 image 7). Small hiatal hernia. Liver: No solid mass. Gallbladder and biliary tree: Distended gallbladder containing multiple stones. No biliary dilation. Spleen: No splenomegaly. Pancreas: No pancreatic ductal dilation. Adrenals: There is a 1.3 cm right adrenal nodule with CT density -7.8, compatible with a lipid laden adrenal adenoma. Mild anterior thickening. Kidneys and ureters: 2 stones are seen in left kidney measuring 3 mm and 6 mm. The largest stone demo nstrates CT density 350 Hounsfield units. No hydronephrosis. No renal cystic lesion which requires fo llow up. Small indeterminate cortical nodules are noted bilaterally. Bowel and peritoneum: No bowel distension. No pathologic free fluid. There are numerous colonic diver ticula. No findings to suggest acute diverticulitis. Lymph nodes: No central or retroperitoneal adenopathy. Vessels: No infrarenal aortic aneurysm. Mild atherosclerotic calcifications. PELVIS Reproductive organs: Unremarkable. Bladder: Mild bladder wall thickening in the anterior wall of the urinary bladder with 2 small foci o f calcification. No definitive bladder stones. Pelvic lymph nodes: No pelvic adenopathy by size criteria. Bones: No aggressive osseous abnormality. Degenerative disc and facet disease in lumbar spine. Other: No significant ventral or inguinal hernia. IMPRESSION: 1. Left nephrolithiasis with a couple of nonobstructive stones. No hydronephrosis. 2. Mild wall thickening involving the anterior urinary bladder with 2 foci of calcification. Consider cystoscopy or CT IVP for further evaluation. 3. Cholelithiasis. Gallbladder is distended. If there is clinical concern for acute cholecystitis, co nsider HIDA scan. 4. Diverticulosis without diverticulitis. 5. A 1.3 cm small right adrenal adenoma. 6. A 5 mm nodule in the left lower lobe. Please see in close follow-up recommendation. Fleischner Society criteria for SOLID lung nodule followup. Nodule size (mm)Low-risk patientHigh-risk patient "d4No follow-up neededFollow-up at 12 mo; if no change, no further follow-up >5-5Radeon-ju CT at 12 mo; if no change, no further follow-up needed.Initial follow-up CT at 6-12 mo, then 18-24 mo if no change. >6-8Initial follow-up CT at 6-12 mo, then 18-24 mo if no change. Initial follow-up CT at 3-6 mo, then 9-12 mo and 24 mo if no change. >8Follow-up CT at 3, 9, 24 mo. Or PET and/or biopsy.Same as for low-risk pts. Reviewed by: Barbi Keating MD on 09/30/2023 2:36 PM PST Approved by: Barbi Keating MD on 09/30/2023 2:36 PM PST Station ID: [id number]
== END 2023-09-28 09:14 | disposition home or self-care (01) ==
LOC: DI 09:13
PROVIDERS: ATTEND Nurse Practitioner Family
DX: N20.0 Calculus of kidney (principal); N32.89 Other specified disorders of bladder; K80.20 Calculus of gallbladder without cholecystitis without obstruction; K57.30 Diverticulosis of large intestine without perforation or abscess without bleeding; D35.01 Benign neoplasm of right adrenal gland; R91.1 Solitary pulmonary nodule

== ENCOUNTER 2023-12-20 13:27 | Outpatient (CLI) | payer MEDICARE, OTHER ==
[2023-12-20 13:59] LABS: CREATININE 0.9 mg/dL (0.6-1.3)
[2023-12-20] MEDS ORDERED: iohexoL-300 100 ML VIAL ONE (14:06)
[2023-12-20] MEDS ORDERED: iohexoL-300 100 ML VIAL IVP ONE (15:20)
--- NOTE | 2023-12-20 18:10 | CT Report ---
PROCEDURE: IVP INDICATIONS: HEMATURIA CONTRAST: Omni 300 140ml TECHNIQUE: A [address] of the abdomen and pelvis was performed. Non-contrast and contrast images were recorded and evaluated at appropriate window settings. Images were recorded and evaluated at appropriate windo w settings. Reformats: coronal and sagittal. For radiation dose reduction, the following was used: au tomated exposure control, adjustment of convex left scoliosis. 3 interval casting with improved align ment at the tibia and fibula fractures. MA and/or kV according to patient size. COMPARISON: None. FINDINGS: Image quality: Diagnostic. Right Kidney: Unremarkable, without stones, masses, or hydronephrosis. Right Ureter: Unremarkable Left Kidney: There are 2 nonobstructing left renal stones. A anteromedial middle pole stone, measurin g 4 mm has a Hounsfield measurement of 729.7. A 3 mm nonobstructing lower pole stone has a Hounsfield measurement of 444.5. No renal masses. No hydronephrosis. Left Ureter: Unremarkable Bladder wall thickness is normal, accounting for underdistention. No calcified bladder stones. No shalini ling defect within the opacified bladder. OTHER Lower chest: Unremarkable. Liver: No solid mass. Gallbladder and biliary tree: There are numerous gallstones present in the gallbladder. The gallbladd er is distended. No gallbladder wall thickening. Spleen: No splenomegaly. Pancreas: No pancreatic ductal dilation. Adrenals: No adrenal nodule. Stomach, bowel and peritoneum: No bowel distension. No pathologic free fluid. Extensive diverticulosi s without evidence of diverticulitis. Abdominal Lymph nodes: No central or retroperitoneal adenopathy. Vessels: Unremarkable. Reproductive organs: Uterus is surgically absent. No adnexal masses identified. Pelvic Lymph nodes: Unremarkable. Bones: No aggressive osseous abnormality. Other: None. IMPRESSION: 1. Small nonobstructing left renal stones. 2. No hydronephrosis, hydroureter, or findings suspicious for malignancy. 3. Remote hysterectomy. 4. Advanced diverticulosis without evidence of diverticulitis. 5. Numerous gallstones in the gallbladder. Reviewed by: Harrison Maher MD on 12/20/2023 6:09 PM PST Approved by: Harrison Maher MD on 12/20/2023 6:09 PM PST Station ID: [id number]
== END 2023-12-20 13:28 | disposition home or self-care (01) ==
LOC: LAB 13:27
PROVIDERS: ATTEND Physician Assistant Medical
DX: R31.29 Other microscopic hematuria (principal); N20.0 Calculus of kidney; Z90.710 Acquired absence of both cervix and uterus; K57.90 Diverticulosis of intestine, part unspecified, without perforation or abscess without bleeding; K80.20 Calculus of gallbladder without cholecystitis without obstruction
CPT/HCPCS: 36415; 74178; 82565; 84520; Q9967